=== PATIENT | female | born 1995 | race Caucasian/White ===

== ENCOUNTER 2024-05-19 11:43 | Emergency (ER) | payer OTHER, SELFPAY ==
[2024-05-19 11:53] VITALS: BP 109/57; PULSE 74; RESP 16; TEMP 37.2; O2SAT 100
--- NOTE | 2024-05-19 12:07 | ED.SKABFB ---
HPI - Skin/Abscess/Foreign Bdy General Chief complaint: Skin/Abscess/Foreign Body Stated complaint: swollen left leg/ankle wasp sting Time Seen by Provider: 05/19/24 11:58 Source: patient and RN notes reviewed Mode of arrival: ambulatory Limitations: no limitations History of Present Illness HPI narrative: Patient presents today with a wasp sting that occurred 2 days ago to the left lateral ankle hand has subsequently cause some redness and swelling to the area. She has tried 25 mg of Benadryl once without relief of symptoms. Related Data Home Medications Medication Instructions Recorded Confirmed omeprazole 40 mg capsule,delayed 40 mg PO DAILY 03/02/24 05/19/24 release Allergies Allergy/AdvReac Type Severity Reaction Status Date / Time No Known Drug Allergies Allergy Other Verified 05/19/24 12:07 Review of Systems Review of Systems: CONSTITUTIONAL: Denies body aches, fever, chills, or sweats. EYES: Denies visual changes, redness, or discharge. ENT: Denies rhinorrhea, congestion, sore throat, or otalgia. CARDIOVASCULAR: Denies chest pain, palpitations, or edema. RESPIRATORY: Denies cough or dyspnea. GASTROINTESTINAL: Denies abdominal pain, nausea, vomiting, or diarrhea. GENITOURINARY: Denies dysuria or hematuria. SKIN: + wasp sting MUSCULOSKELETAL: Denies back pain, joint pain, or myalgia. NEUROLOGIC: Denies headache, numbness, tingling, or weakness. PSYCH: Denies depression or anxiety. FOR[facility]LY [facility] Family History Family History Mother Hypertension Depression Anxiety Social History Social History Years smoked: 0.5 Smoking status: Current every day smoker (stopped cigarettes 6 months ago and moved to vape) Tobacco type: e-cigarettes/vaping Alcohol intake: current Drinks per week: 1 Alcohol use details: beer, not often Comments At time of signature, I have reviewed and agree with nursing past medical, surgical, social and family history unless otherwise noted. Please see nursing chart for further information. There is no relevant family history pertinent to the presenting complaint Exam Narrative: GENERAL: Well-appearing, well-nourished, and in no acute distress. HEAD: Normocephalic, atraumatic. EYES: EOMI. No redness or drainage. Conjunctivae normal. ENT: Mucous membranes pink and moist. NECK: Normal AROM. CHEST: No respiratory distress. EXTREMITIES: Normal range of motion. No edema. SKIN: Warm, dry, no rash. Capillary refill normal. Normal skin turgor. Wasp sting puncture wound to left lateral lower leg surrounded in an area of erythema measuring approximately 5 x 5 cm with some a mild edema to the lateral lower leg and ankle area. Distal sensation intact. Capillary refill normal. Pedal pulse normal. Full range of motion of the ankle. NEURO: No focal deficits. Alert and oriented x3. Gait steady. PSYCH: Normal affect. No signs of depression or anxiety. Course Course Level of Care: Express Care Visit Vital Signs Vital signs: Vital Signs Temperature 99.0 F 05/19/24 11:53 Pulse Rate 74 05/19/24 11:53 Respiratory Rate 16 05/19/24 11:53 Blood Pressure 109/57 L 05/19/24 11:53 Pulse Oximetry 100 05/19/24 11:53 Oxygen Delivery Room Air 05/19/24 11:53 Temperature 99.0 F 05/19/24 11:53 Pulse Rate 74 05/19/24 11:53 Respiratory Rate 16 05/19/24 11:53 Blood Pressure 109/57 L 05/19/24 11:53 Pulse Oximetry 100 05/19/24 11:53 Oxygen Delivery Room Air 05/19/24 11:53 Reviewed MDM - Skin/Abscess/Foreign Bdy MDM Narrative Medical decision making narrative: Patient will be treated with a course of prednisone for her allergic reaction. At this time, it does not appear that she has an infection to the area. Recommend continuing an antihistamine as well. Anticipatory guidance given. Differential Diagnosis Differen
== END 2024-05-19 12:16 | disposition home or self-care (01) ==
PROVIDERS: Emergency Provider Nurse Practitioner
DX: T63.461A Toxic effect of venom of wasps, accidental (unintentional), initial encounter (principal); F17.290 Nicotine dependence, other tobacco product, uncomplicated
CPT/HCPCS: 99213; G0463

== ENCOUNTER 2024-12-12 16:02 | Emergency (ER) | payer OTHER, SELFPAY ==
[2024-12-12 16:46] VITALS: BP 118/64; PULSE 62; RESP 18; TEMP 36.9; O2SAT 100
--- NOTE | 2024-12-12 17:28 | ED_ITS ---
HPI - Back Pain/Injury General Chief Complaint: Back Pain/Injury Stated Complaint: Back Pain Time Seen by Provider: 12/12/24 17:29 Source: patient, RN notes reviewed and old records reviewed Mode of arrival: ambulatory Limitations: no limitations History of Present Illness HPI Narrative: Patient presents with complaints of back pain for 5 hours after changing a tire. She has taken ibuprofen for her symptoms with minimal relief. She denies any loss of bowel or bladder control. Denies any numbness or tingling Related Data Home Medications ?Medication ?Instructions ?Recorded ?Confirmed ?Last Taken ?Type omeprazole 40 mg capsule,delayed 40 mg PO DAILY 03/02/24 05/19/24 Unknown History release Allergies Allergy/AdvReac Type Severity Reaction Status Date / Time No Known Drug Allergies Allergy Other Verified 12/12/24 16:48 Review of Systems Review of Systems: All systems reviewed & are unremarkable except as noted in HPI and below Constitutional: Constitutional: Reports no additional constitutional complaints ENT: Reports system reviewed and no additional complaints, except as documented Cardiovascular: Cardiovascular: Reports no additional cardiovascular complaints Respiratory: Respiratory: Reports no additional respiratory complaints Gastrointestinal: Gastrointestinal: Reports no additional gastrointestinal complaints Musculoskeletal: Musculoskeletal: Reports no additional musculoskeletal complaints, Reports as per HPI and Reports back pain PMFSH Family History Family History Mother Hypertension Depression Anxiety Social History Social History Years smoked: 0.5 Smoking status: Current every day smoker (stopped cigarettes 6 months ago and moved to vape) Tobacco type: e-cigarettes/vaping Alcohol intake: current Drinks per week: 1 Alcohol use details: beer, not often Comments At the time of my signature, I reviewed and agree with the nursing past medical, surgical, social, and family history. There is no relevant family history pertinent to the patient complaint. Exam Const: General: cooperative, no acute distress, alert and awake O rientation/consciousness: oriented to person, oriented to place and oriented to time HENMT: Head: normal to inspection Resp: Effort & Inspection: normal respiratory effort and able to speak in complete sentences Auscultation: clear to auscultation bilaterally, no crackles, no rales, no rhonchi and no wheezes Cardio: Palpation: normal PMI Rate: regular rate Rhythm: regular rhythm Heart sounds: S1 normal heart sound present and S2 normal heart sound present Neuro: General: oriented to person, oriented to place and oriented to time Cranial nerves: Yes CN's II-XII intact bilaterally Motor exam (neuro): 5/5 motor strength present throughout Psych: Appearance: grossly normal Thought process: Normal thought process present Insight: Good insight present (Psych) Judgement: Good judgement present (Psych) Course Course Level of Care: Express Care Visit Vital Signs Vital signs: Vital Signs Temperature 98.4 F 12/12/24 16:46 Pulse Rate 62 12/12/24 16:46 Respiratory Rate 18 12/12/24 16:46 Blood Pressure 118/64 12/12/24 16:46 Pulse Oximetry 100 12/12/24 16:46 Oxygen Delivery Room Air 12/12/24 16:46 Temperature 98.4 F 12/12/24 16:46 Pulse Rate 62 12/12/24 16:46 Respiratory Rate 18 12/12/24 16:46 Blood Pressure 118/64 12/12/24 16:46 Pulse Oximetry 100 12/12/24 16:46 Oxygen Delivery Room Air 12/12/24 16:46 Reviewed MDM - Back Pain/Injury MDM Narrative Medical decision making narrative: Reassuring physical exam. Patient in no distress. Observed pending, walking, caring objects without any obvious difficulty. Supportive care measures discussed. Work note provided. Discharge instructions reviewed with patient, as well as provided in writing per nursing staff. The instructions also include specific and strict return/GO TO THE ER as well as f/u information. All questions have been answered, and the patient deny any further questions with discharge and discharge plan. Some parts of this dictation were generated by voice recognition software and may contain typographical and/or grammatical inaccuracies. Differential Diagnosis Differential diagnosis: Likely strain of lumbar region and thoracic back pain Medical Records Attestation: I reviewed the patient's medical records. Discharge Plan Discharge Clinical Impression: Strain of lumbar region Patient Disposition: Home, Self-Care Condition: Stable Instructions: Antibiotic Form, Back Pain (ED) Additional Instructions: Take medications as prescribed. Follow with primary care provider. Emergency department for new or worse symptoms Patient Language: Georgian Prescriptions: New prednisone 50 mg tablet 50 mg PO DAILY Qty: 3 0RF No Action omeprazole 40 mg capsule,delayed release(/EC) 40 mg PO DAILY Follow-up/Referrals: PHYSICIAN,[employer] SAL[employer] PERSON [Primary Care Provider] - Stand Alone Forms: Work/School Release IP Time of Disposition: 17:33
== END 2024-12-12 17:40 | disposition home or self-care (01) ==
PROVIDERS: Emergency Provider Nurse Practitioner Family
DX: S39.012A Strain of muscle, fascia and tendon of lower back, initial encounter (principal); X58.XXXA Exposure to other specified factors, initial encounter; F17.290 Nicotine dependence, other tobacco product, uncomplicated
CPT/HCPCS: 99213; G0463